=== PATIENT | female | born 2000 | race Caucasian/White ===

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

== ENCOUNTER → 2021-02-24 | Outpatient (CLI) | payer BC | LOC: M.ULTRA 11:00 | PROVIDERS: ATTEND Registered Nurse Diabetes Educator | DX: N60.12 Diffuse cystic mastopathy of left breast (principal); N60.11 Diffuse cystic mastopathy of right breast ==